=== PATIENT | female | born 2000 | race Caucasian/White ===

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

== ENCOUNTER 2019-11-05 10:35 | Emergency (ER) | payer OTHER ==
[~2019-11-05] VITALS: Ht 162.6 cm; Wt 64.0 kg
[2019-11-05 10:43] VITALS: Ht 162.6 cm; Wt 64.0 kg
[2019-11-05 11:26] LABS: BASOPHIL % 0.2 % (0-2); PLATELET COUNT 391 x10^3mcL (130-400); RED CELL DISTRIBUTION WIDTH 14.8 % (11.5-14.5)
[2019-11-05 12:35] VITALS: BP 112/70
== END 2019-11-05 12:35 | disposition home or self-care (01) ==
LOC: ED 10:35
PROVIDERS: Emergency Medicine
DX: O20.0 Threatened abortion (principal); J45.909 Unspecified asthma, uncomplicated; Z88.1 Allergy status to other antibiotic agents; Z88.0 Allergy status to penicillin; Z88.2 Allergy status to sulfonamides
CPT/HCPCS: 36415

== ENCOUNTER 2019-12-27 18:23 | Emergency (ER) | payer OTHER ==
[2019-12-27 18:39] VITALS: BP 117/56; Ht 165.1 cm
== END 2019-12-27 20:54 | disposition home or self-care (01) ==
LOC: ED 18:23
DX: O9A.212 Injury, poisoning and certain other consequences of external causes complicating pregnancy, second trimester (principal); S62.634A Displaced fracture of distal phalanx of right ring finger, initial encounter for closed fracture; S39.91XA Unspecified injury of abdomen, initial encounter; O99.512 Diseases of the respiratory system complicating pregnancy, second trimester; Z88.0 Allergy status to penicillin; Z88.1 Allergy status to other antibiotic agents; Z88.2 Allergy status to sulfonamides; Z3A.18 18 weeks gestation of pregnancy; W18.39XA Other fall on same level, initial encounter; Y93.02 Activity, running; Y92.89 Other specified places as the place of occurrence of the external cause; Y99.8 Other external cause status
CPT/HCPCS: Q0092